=== PATIENT | male | born 1985 | race Caucasian/White ===

== ENCOUNTER 2018-05-30 14:32 | Emergency (ER) | payer SELFPAY ==
--- NOTE | 2018-05-30 17:16 | C.PDOC ---
History Of Present Illness 32 y/o male presents to the ED complaining of feeling constipated for the last 3 days. His last bowel movement was 3 days ago. He tried taking dulcolax without any relief. Patient has no other symptoms. Describes having minimal lower abdominal discomfort. Time Seen by Provider: 05/30/18 16:39 Chief Complaint (Nursing): GI Problem History Per: Patient History/Exam Limitations: no limitations Onset/Duration Of Symptoms: Days Current Symptoms Are (Timing): Still Present Past Medical History Reviewed: Historical Data, Nursing Documentation, Vital Signs Vital Signs: Last Vital Signs Temp 98.4 F 05/30/18 14:54 Pulse 60 05/30/18 14:54 Resp 18 05/30/18 14:54 BP 96/57 L 05/30/18 14:54 Pulse Ox 100 05/30/18 14:54 Family History: States: No Known Family Hx Review Of Systems Constitutional: Negative for: Fever Respiratory: Negative for: Shortness of Breath Gastrointestinal: Positive for: Abdominal Pain, Constipation. Negative for: Nausea, Vomiting, Diarrhea Genitourinary: Negative for: Dysuria, Hematuria Musculoskeletal: Negative for: Back Pain Neurological: Negative for: Weakness, Numbness Physical Exam - Physical Exam Appears: Non-toxic, No Acute Distress Skin: Normal Color, Warm, Dry Head: Atraumatic, Normacephalic Eye(s): bilateral: Normal Inspection, PERRL, EOMI Oral Mucosa: Moist Neck: Normal ROM Chest: Symmetrical Cardiovascular: Rhythm Regular, No Murmur Respiratory: Normal Breath Sounds, No Accessory Muscle Use Gastrointestinal/Abdominal: Bowel Sounds (normal), Soft, No Tenderness, No Distention, No Guarding, No Rebound Back: Normal Inspection Extremity: Bilateral: Atraumatic, Normal Color And Temperature, Normal ROM Neurological/Psych: Oriented x3, Normal Speech ED Course And Treatment O2 Sat by Pulse Oximetry: 100 (RA) Pulse Ox Interpretation: Normal - Other Rad Abdominal x-ray X-Ray: Read By Radiologist Interpretation: Accession No. : [id number]. Patient Name / ID : PATSY BENZ / [id number]. Exam Date : 05/30/2018 17:23:43 ( Approved ). Study Comment : Sex / Age : M / 32Y. Creator : Theresa Quan Dictator : Mounika Ayala MD. Product Advisor : Special Education Science Teacher : Mounika Ayala MD. Approver2 : Report Date : 05/30/2018 17:26:34. My Comment : . Date of service: 05/30/2018. HISTORY: constipation. COMPARISON: None a vailable. FINDINGS: BOWEL: Nonspecific bowel gas pattern without evidence of obstruction. Moderate constipation. BONES: No acute osseous abnormality is detected. OTHER FINDINGS: None. IMPRESSION: Moderate constipation. Medical Decision Making Medical Decision Making: Impression: Constipation, r/o obstruction Plan: --Abdominal X-Ray Constipation without impaction on XR. Advised continuing stool softeners and increasing fiber in diet. Stable for discharge home. Disposition - Disposition Disposition: HOME/ ROUTINE Disposition Time: 18:20 Condition: STABLE Additional Instructions: TUYET GARNER, thank you for letting us take care of you today. Your provider was Jackelyn Alvares MD and you were treated for CONSTIPATION. The emergency medical care you received today was directed at your acute symptoms. If you were prescribed any medication, please fill it and take as directed. It may take several days for your symptoms to resolve. Return to the Emergency Department if your symptoms worsen, do not improve, or if you have any other problems. Please contact your doctor or call one of the physicians/clinics you have been referred to that are listed on the Patient Visit Information form that is included in your discharge packet. Bring any paperwork you were given at discharge with you along with any medications you are taking to your follow up visit. Our treatment cannot replace ongoing medical care by a primary care provider outside of the emergency department. Thank you for allowing the [facility] team to be part of your care today. If you had an X-Ray or CT scan: A Radiologist will review the ED reading if any change in treatment is needed we will contact you. If you had a blood, urine, or wound culture: It will take several days for the results, if any change in treatment is needed we will contact you. If you had an STI test: It will take 48 hours for the results. Please call after 1 week if you have not heard back. Instructions: Constipation, Adult (DC) Forms: [facility] ([place]) - Clinical Impression Clinical Impression: Constipation - Scribe Statement The provider has reviewed the documentation as recorded by the Sary Clemons Provider Attestation: All medical record entries made by the Sary were at my direction and personally dictated by me. I have reviewed the chart and agree that the record accurately reflects my personal performance of the history, physical exam, medical decision making, and the department course for this patient. I have also personally directed, reviewed, and agree with the discharge instructions and disposition.
--- NOTE | 2018-05-30 17:32 | RAD ---
Date of service: 05/30/2018 HISTORY: constipation COMPARISON: None available. FINDINGS: BOWEL: Nonspecific bowel gas pattern without evidence of obstruction. Moderate constipation. BONES: No acute osseous abnormality is detected. OTHER FINDINGS: None. IMPRESSION: Moderate constipation.
[2018-05-30 17:39] VITALS: BP 117/72; PULSE 66; RESP 16; TEMP 97.9
[2018-05-30 18:32] VITALS: O2SAT 100
== END 2018-05-30 18:35 | disposition home or self-care (01) ==
LOC: C.ER 14:32
DX: K59.00 Constipation, unspecified (principal)